=== PATIENT | male | born 2000 | race African-American/Black ===

== ENCOUNTER 2023-02-27 22:32 | Emergency (ER) | payer MEDICAID ==
[~2023-02-27] VITALS: Ht 180.3 cm; Wt 81.6 kg
[2023-02-27 22:38] VITALS: BP 124/71; PULSE 99; RESP 16; TEMP 97.4; O2SAT 95
[2023-02-27 23:00] VITALS: BP 124/71; PULSE 89; RESP 17; TEMP 98; O2SAT 98
== END 2023-02-27 23:00 ==
LOC: MED 22:32
DX: S63.92XA Sprain of unspecified part of left wrist and hand, initial encounter (principal); Z98.890 Other specified postprocedural states; X58.XXXA Exposure to other specified factors, initial encounter; Y92.89 Other specified places as the place of occurrence of the external cause; Y93.89 Activity, other specified; Y99.8 Other external cause status
CPT/HCPCS: 73120; 99283